=== PATIENT | female | born 1950 | race Caucasian/White ===

== ENCOUNTER → 2018-07-27 | Outpatient (CLI) | payer MEDICARE, OTHER ==
[~2018-07-27] MED LIST: ACYC5CRE2 TP; ALPR0.254 PO; AMIT10TA PO; BACI1TAB3 PO; BUPR150T6 PO; BUPR1PAT9 TD; CHOL200024 PO; DOCU100C33 PO; ELEC1000 PO; ESTR1TAB15 PO; FAMO40TA61 PO; GABA100C PO; HYDR-3307 PO; INUL1TAB PO; LEVO50TA5 PO; MAGN2400 PO; MAGN400T7 PO; NALO12.5 PO; ONDA8TAB16 PO; PARO40TA3 PO; POLY17PO5 PO; SUCR1ORA5 PO; VALA500T4 PO; [UNRECOGNIZED DRUG - CODE] PO; [UNRECOGNIZED DRUG - CODE] PO
[2018-07-27 11:43] LABS: BASOPHILS # (AUTO) 0.03 x10^3/uL (0-0.1); BASOPHILS % (AUTO) 1 % (0-1); EOSINOPHILS # (AUTO) 0.04 x10^3/uL (0-0.4); EOSINOPHILS % (AUTO) 1 % (1-7); LYMPHOCYTES # (AUTO) 1.28 x10^3/uL (1-3.4); LYMPHOCYTES % (AUTO) 31 % (22-44); MD NO; MEAN CORPUSCULAR HEMOGLOBIN 25.8 pg (27.0-34.8); MEAN CORPUSCULAR HGB CONC 32.1 g/dL (32.4-35.8); MEAN CORPUSCULAR VOLUME 80.4 fL (80-100); MEAN PLATELET VOLUME 9.6 fL (7.4-10.4); MONOCYTES # (AUTO) 0.36 x10^3/uL (0.2-0.8); MONOCYTES % (AUTO) 9 % (2-9); NEUTROPHILS # (AUTO) 2.46 x10^3/uL (1.8-6.8); NEUTROPHILS % (AUTO) 59 % (42-75); PLATELET COUNT 201 x10^3/uL (130-400); RED CELL DISTRIBUTION WIDTH 15.3 % (9.6-15.2)
[2018-07-27 11:52] LABS: INTERNATIONAL NORMALIZED RATIO 0.98 (0.93-1.1); PROTHROMBIN TIME 10.4 Seconds (9.6-11.5)
[2018-07-27 11:53] LABS: ALANINE AMINOTRANSFERASE 20 U/L (12-78); ALBUMIN 3.8 g/dL (3.4-5.0); ANION GAP 3 mmol/L (5-15); CALCIUM 8.7 mg/dL (8.5-10.1); CHLORIDE 110 mmol/L (98-107)
[2018-07-27 11:55] LABS: ALKALINE PHOSPHATASE 87 U/L (45-117); BILIRUBIN,TOTAL 0.4 mg/dL (0.2-1.0); CREATININE 1.39 mg/dL (0.55-1.02); TOTAL PROTEIN 7.4 g/dL (6.4-8.2)
== END | disposition home or self-care (01) ==
LOC: STAR 10:31
PROVIDERS: ATTEND Specialist
DX: Z01.818 Encounter for other preprocedural examination (principal); N82.3 Fistula of vagina to large intestine; M48.54XA Collapsed vertebra, not elsewhere classified, thoracic region, initial encounter for fracture
CPT/HCPCS: 36415; 71046; 80053; 85025; 85610; 85730; 93005

== ENCOUNTER 2018-08-02 05:26 | Day surgery (SDC) | payer MEDICARE, OTHER ==
[~2018-08-02] VITALS: Ht 170.2 cm; Wt 66.5 kg
[2018-08-02 05:59] VITALS: BP 123/78
[2018-08-02] MEDS ORDERED: LACTATED RINGERS 1,000 ML IV SCH (05:59)
[2018-08-02] MEDS ORDERED: ACETAMINOPHEN 500 MG TABLET PO ONE (07:00)
[2018-08-02] MEDS ORDERED: ONDANSETRON ODT 8 MG PO ONE (07:00)
[2018-08-02] MEDS ORDERED: BUPIVACAINE 0.25% ONE (07:01)
[2018-08-02] MEDS ORDERED: FLUORESCEIN SODIUM 500 MG/5 ML ONE (07:01)
[2018-08-02] MEDS ORDERED: EPINEPHRINE 1 MG/ML, 1ML ONE (07:01)
[2018-08-02] MEDS ORDERED: ONDANSETRON ODT 8 MG ONE (07:05)
[2018-08-02] MEDS ORDERED: ACETAMINOPHEN 500 MG TABLET ONE (07:05)
[2018-08-02] MEDS ORDERED: CEFAZOLIN 1,000 MG ONE ×2 (07:10)
[2018-08-02] MEDS ORDERED: FENTANYL PF 100 MCG/2ML ONE ×2 (07:10→09:04)
[2018-08-02] MEDS ORDERED: MIDAZOLAM 1 MG/ML, 2ML ONE (07:10)
[2018-08-02] MEDS ORDERED: LIDOCAINE-MPF 2% ,5ML ONE (07:10)
[2018-08-02] MEDS ORDERED: SUCCINYLCHOLINE 20 MG/ML, 10ML ONE (07:10)
[2018-08-02] MEDS ORDERED: PROPOFOL 10 MG/ML, 20ML ONE (07:10)
[2018-08-02] MEDS ORDERED: DEXAMETHASONE 4 MG/ML, 1ML ONE ×2 (07:10)
[2018-08-02] MEDS ORDERED: PROPOFOL 50 ML ONE (07:10)
[2018-08-02] MEDS ORDERED: ROCURONIUM 10MG/ML,5ML ONE (07:11)
[2018-08-02] MEDS ORDERED: SCOPOLAMINE PATCH, 1.5MG PATCH.TD72 TD ONE (07:20)
[2018-08-02] MEDS ORDERED: LABETALOL 5MG/ML, 20ML IV PRN (07:30)
[2018-08-02] MEDS ORDERED: ALBUTEROL/IPRATROPIUM 2.5MG/0.5MG, 3 ML NPPB PRN (07:30)
[2018-08-02] MEDS ORDERED: DIAZEPAM 5 MG/ML, 2ML IVPush PRN (07:30)
[2018-08-02] MEDS ORDERED: LORazepam 2 MG/ML, 1ML IVPush PRN (07:30)
[2018-08-02] MEDS ORDERED: OXYcodone 5 MG/5 ML ORAL.SOL UDC PO PRN (07:30)
[2018-08-02] MEDS ORDERED: ONDANSETRON 2MG/ML, 2ML IV PRN (07:30)
[2018-08-02] MEDS ORDERED: GABAPENTIN 400 MG CAPSULE PO PRN (07:30)
[2018-08-02] MEDS ORDERED: MEPERIDINE/PF 25MG/0.5ML IVPush PRN (07:30)
[2018-08-02] MEDS ORDERED: ACETAMINOPHEN 325 MG TABLET PO PRN (07:30)
[2018-08-02] MEDS ORDERED: hydrALAzine 20 MG/ML, 1ML IV PRN (07:30)
[2018-08-02] MEDS ORDERED: GLYCOPYRROLATE 0.2MG/1ML, 5ML ONE (07:43)
[2018-08-02] MEDS ORDERED: NEOSTIGMINE 1 MG/ML, 10ML ONE (07:43)
[2018-08-02] MEDS ORDERED: METOCLOPRAMIDE 5 MG/ML, 2ML ONE (07:43)
[2018-08-02] MEDS ORDERED: BUPIVACAINE LIPOSOME/PF 20ML INFIL ONE (08:04)
[2018-08-02] MEDS ORDERED: HYDROmorphone 2 MG/ML, 1ML ONE (09:04)
[2018-08-02] MEDS ORDERED: OXYcodone 5 MG/5 ML ORAL.SOL UDC ONE (09:04)
[2018-08-02] MEDS: FENTANYL PF 100 MCG/2ML IV PRN ×2 (09:07→09:18)
[2018-08-02] MEDS: HYDROmorphone 1 MG/ML, 1ML IV PRN ×2 (09:11→09:24)
[2018-08-02] MEDS ORDERED: KETOROLAC 30 MG/1 ML ONE (09:20)
[2018-08-02] MEDS ORDERED: KETOROLAC 30 MG/1 ML IV SCH (09:30)
[2018-08-02] MEDS ORDERED: METHYLENE BLUE 10 MG/ML 10ML ONE (18:02)
== END 2018-08-02 11:45 | disposition home or self-care (01) ==
LOC: OUT 05:26
PROVIDERS: ATTEND Specialist
DX: N82.3 Fistula of vagina to large intestine (principal); K64.8 Other hemorrhoids; K64.4 Residual hemorrhoidal skin tags; K21.9 Gastro-esophageal reflux disease without esophagitis; E03.9 Hypothyroidism, unspecified; Z98.890 Other specified postprocedural states; Z85.01 Personal history of malignant neoplasm of esophagus; Z90.49 Acquired absence of other specified parts of digestive tract; Z87.891 Personal history of nicotine dependence
CPT/HCPCS: 36415; 46260; 57300; 86850; 86900; 86923; 88304; C9290; J0171; J0330; J0690; J1100; J1170; J1885; J2250; J2704; J2710; J2765; J3010; J3490; J7120; Q0162; Q9968